=== PATIENT | male | born 1950 | race Caucasian/White ===

== ENCOUNTER 2018-09-23 10:50 | Emergency (ER) | payer OTHER, MEDICARE ==
[2018-09-23 11:01] VITALS: BP 154/94
[2018-09-23] MEDS ORDERED: BUPIVACAINE HCL 0.75% INJ/PF (7.5 MG/1 ML) 10 ML SDV INJ ONE (11:16)
[2018-09-23] MEDS ORDERED: METHYLPREDNISOLONE ACETATE INJ 80 MG/1 ML VIAL IM ONE (11:16)
[2018-09-23 11:42] LABS: ABSOLUTE EOSINOPHILS # (AUTO) 0.1 10^3/uL (0.0-0.6); ABSOLUTE LYMPHOCYTES (AUTO) 0.7 10^3/uL (0.5-4.7); ABSOLUTE MONOCYTES (AUTO) 0.8 10^3/uL (0.1-1.4); ABSOLUTE NEUT (AUTO) 5.7 10^3/uL (1.7-8.2); BASOPHILS % (AUTO) 0.6 % (0-2); EOSINOPHILS % (AUTO) 1.4 % (0-6); HEMATOCRIT 40.1 % (37.9-51.0); HEMOGLOBIN 13.6 g/dL (13.5-17.0); LYMPHOCYTES % (AUTO) 9.7 % (13-45); MEAN CORPUSCULAR HEMOGLOBIN 30.2 pg (27.0-33.4); MEAN CORPUSCULAR HGB CONC 33.8 g/dL (32.0-36.0); MEAN CORPUSCULAR VOLUME 89 fl (80-97); MONOCYTES % (AUTO) 10.9 % (3-13); PLATELET COUNT 223 10^3/uL (150-450); RED BLOOD COUNT 4.48 10^6/uL (4.35-5.55); RED CELL DISTRIBUTION WIDTH 13.3 % (11.5-14.0); SEGMENTED NEUTROPHILS % (AUTO) 77.4 % (42-78); TOTAL CELLS COUNTED % (AUTO) 100 %; WHITE BLOOD COUNT 7.4 10^3/uL (4.0-10.5)
[2018-09-23] MEDS ORDERED: HYDROCODONE/ACETAMINOPHEN 5-325 MG TABLET PO ONE (11:44)
[2018-09-23 12:05] LABS: ANION GAP 9 (5-19); BLOOD UREA NITROGEN 25 mg/dL (7-20); CALCIUM 9.7 mg/dL (8.4-10.2); CARBON DIOXIDE 29 mmol/L (22-30); CHLORIDE 105 mmol/L (98-107); GLUCOSE 97 mg/dL (75-110); POTASSIUM 4.4 mmol/L (3.6-5.0); SODIUM 143.4 mmol/L (137-145); URIC ACID 4.4 mg/dL (3.5-8.5)
[2018-09-23 12:22] LABS: ERYTHROCYTE SEDIMENTATION RATE 44 mm/hr (0-20)
--- NOTE | 2018-09-23 13:03 | ER Document Report ---
ED Extremity Problem, Lower - General Chief Complaint: Leg Swelling Stated Complaint: SWOLLEN WRIST AND LEFT LEG HURTS Time Seen by Provider: 09/23/18 11:07 Mode of Arrival: Ambulatory Information source: Patient Notes: Chief complaint: Right hand, left knee pain History of complain:( obtained from----patient) 68 years old male presents today with right hand swelling over the first and second metacarpal bone region over the extensor surface with redness and warmness for the last 3-4 days. Giving rise to difficulty in flexing and extending the wrist and hand. Left knee swelling and pain for nearly 2 months. Difficulty in walking due to pain. As well as was diagnosed as having Bernardo's cyst. No injury. No fever chills or other constitutional symptoms. Onset: As above Duration: As above Severity: Moderate Quality: Sharp Context: Possible gout Exacerbating factor and relieving factors: Any movement REVIEW OF SYSTEMS: CONSTITUTIONAL : Denies fever, chills, or sweats. Denies recent illness. EENT: Denies eye, ear, throat, or mouth pain or symptoms. Denies nasal or sinus congestion or discharge. Denies throat, tongue, or mouth swelling or difficulty swallowing. CARDIOVASCULAR: Denies chest pain. Denies palpitations or racing or irregular heart beat. Denies ankle edema. RESPIRATORY: Denies cough, cold, or chest congestion. Denies shortness of breath, difficulty breathing, or wheezing. GASTROINTESTINAL: Denies distention. Denies nausea, vomiting, or diarrhea. Denies blood in vomitus, stools, or per rectum. Denies black, tarry stools. Denies constipation. GENITOURINARY: Denies difficulty urinating, painful urination, burning, frequency, blood in urine, or discharge. FEMALE GENITOURINARY: Denies vaginal bleeding, heavy or abnormal periods, irregular periods. Denies vaginal discharge or odor. MUSCULOSKELETAL: Denies back or neck pain or stiffness. Denies joint pain or swelling. SKIN: Denies rash, lesions or sores. HEMATOLOGIC : Denies easy bruising or bleeding. LYMPHATIC: Denies swollen, enlarged glands. NEUROLOGICAL: Denies confusion or altered mental status. Denies passing out or loss of consciousness. Denies dizziness or lightheadedness. Denies headache. Denies weakness or paralysis or loss of use of either side. Denies problems with gait or speech. Denies sensory loss, numbness, or tingling. Denies seizures. PSYCHIATRIC: Denies anxiety or stress. Denies depression, suicidal ideation, or homicidal ideation. ALL OTHER SYSTEMS REVIEWED AND NEGATIVE. PHYSICAL EXAMINATION: GENERAL: Well-appearing, well-nourished and in no acute distress. HEAD: Atraumatic, normocephalic. EYES: Pupils equal round and reactive to light, extraocular movements intact, conjunctiva are normal. ENT: Nares patent, oropharynx clear without exudates. Moist mucous membranes. NECK: Normal range of motion, supple without lymphadenopathy LUNGS: Breath sounds clear to auscultation bilaterally and equal. No wheezes rales or rhonchi. HEART: Regular rate and rhythm without murmurs ABDOMEN: Soft, nontender, nondistended abdomen. No guarding, no rebound. No masses appreciated. Examination of genitals-deferred Musculoskeletal: Right hand-over the first and second metacarpal bones and the extensor surface shows swelling slight erythema and also is warm and tender to touch. Left knee has diffuse swelling with prepatellar prominence swelling as well as tenderness. Slightly warm and tender to touch. Has extreme difficulty in flexing and extending the knee due to stiffness. Neurovascular function distally within normal limit. NEUROLOGICAL: Cranial nerves grossly intact. Normal speech, normal gait. Normal sensory, motor exams PSYCH: Normal mood, normal affect. SKIN: Warm, Dry, normal turgor, no rashes or lesions noted. Dictation was performed using [employer] voice recognition software TRAVEL OUTSIDE OF THE [place] IN LAST 30 DAYS: No - HPI Notes: Dictated - Related Data Allergies/Adverse Reactions: No Known Allergies Allergy (Verified 09/23/18 10:51) Past Medical History - Social History Smoking Status: Current Every Day Smoker Frequency of alcohol use: None Drug Abuse: None Lives with: Family Family History: Reviewed & Not Pertinent Patient has suicidal ideation: No Patient has homicidal ideation: No - Past Medical History Cardiac Medical History: Reports: Hx Hypertension Denies: Hx Coronary Artery Disease, Hx Heart Attack Pulmonary Medical History: Denies: Hx Asthma, Hx Bronchitis, Hx COPD, Hx Pneumonia Neurological Medical History: Denies: Hx Cerebrovascular Accident, Hx Seizures Renal/ Medical History: Denies: Hx Peritoneal Dialysis Musculoskeletal Medical History: Denies Hx Arthritis Past Surgical History: Reports: Hx Abdominal Surgery - hernia repair - Immunizations Hx Diphtheria, Pertussis, Tetanus Vaccination: No Review of Systems - Review of Systems Notes: Dictated Physical Exam - Vital signs Vitals: Temp Pulse Resp BP Pulse Ox 98.0 F 77 16 154/94 H 94 09/23/18 10:56 09/23/18 10:56 09/23/18 10:56 09/23/18 10:56 09/23/18 10:56 - Notes Notes: Dictated Course - Vital Signs Vital signs: Temp Pulse Resp BP Pulse Ox 98.0 F 77 16 154/94 H 94 09/23/18 10:56 09/23/18 10:56 09/23/18 10:56 09/23/18 10:56 09/23/18 10:56 - Laboratory Result Diagrams: 09/23/18 11:30 09/23/18 11:30 Laboratory results interpreted by me: 09/23/18 09/23/18 11:30 11:30 Lymphocytes % 9.7 L ESR 44 H BUN 25 H Procedures - Joint Aspiration Left Knee Time completed: 12:10 Consent obtained: Yes Joint aspiration pre-procedure: Sterile PPE donned Anesthetic type: Other - Depo-Medrol 80 mg mL's of anesthetic: 5 Needle size: 18 Amount/type of drainage: 25 Number of attempts: 1 Complications: No Notes: Under aseptic condition using sterile technique after cleaning with alcohol infiltrated with Sensorcaine, obtained 25 cc of serosanguineous fluid. And subsequently injected with 80 mg of Depo-Medrol mixed with 4 cc of Sensorcaine without any complications. Patient tolerated the procedure well. Able to flex Extend better. 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
--- NOTE | 2018-09-23 13:21 | RADIOLOGY REPORT (SQ) ---
EXAM DESCRIPTION: VENOUS UNILATERAL LOWER COMPLETED DATE/TIME: 09/23/2018 1:13 pm REASON FOR STUDY: dvt COMPARISON: None. TECHNIQUE: Dynamic and static meza scale and color images acquired of the left leg venous system. Se lected spectral images acquired with additional compression and augmentation maneuvers. The contralat eral common femoral vein and saphenofemoral junction were also imaged. Images stored on PACS. LIMITATIONS: None. FINDINGS: COMMON FEMORAL: Normal phasicity, compression and augmentation. No visualized echogenic ma terial on meza scale. No defects on color images. FEMORAL: Normal compression and augmentation. No visualized echogenic material on meza scale. No defe cts on color images. POPLITEAL: Normal compression, augmentation. No visualized echogenic material on meza scale. No defec ts on color images. CALF VESSELS: Normal compression, augmentation. No visualized echogenic material on meza scale. No de fects on color images. GSV and SSV: Normal compression, augmentation. No visualized echogenic material on meza scale. No def ects on color images. ANY DEEP VENOUS INSUFFICIENCY: Not evaluated. ANY EVIDENCE OF POPLITEAL CYST: No. OTHER: No other significant finding. CONTRALATERAL COMMON FEMORAL VEIN AND SAPHENOFEMORAL JUNCTION: Normal phasicity, compression and augmentation. No visualized echogenic material on meza scale. No de fects on color images. IMPRESSION: Negative ultrasound examination for deep venous thrombosis in the left lower extremity. TECHNICAL DOCUMENTATION: JOB ID: [id number] [employer]- All Rights Reserved Reading location - IP/workstation name: [email or web address]
== END 2018-09-23 13:29 | disposition home or self-care (01) ==
LOC: ER 10:50
DX: T56.0X1A Toxic effect of lead and its compounds, accidental (unintentional), initial encounter (principal); M10.1 Lead-induced gout; X58.XXXA Exposure to other specified factors, initial encounter; F17.200 Nicotine dependence, unspecified, uncomplicated; I10 Essential (primary) hypertension
CPT/HCPCS: 99284; 36415; 84550; 85025; 85652; 80048; 93971; 20610; L3908

== ENCOUNTER 2019-04-15 11:19 | Emergency (ER) | payer OTHER, MEDICARE ==
[2019-04-15] MEDS ORDERED: ASPIRIN 81 MG TABLET, CHEWABLE PO ONE (11:39)
--- NOTE | 2019-04-15 11:42 | ER Document Report ---
ED Medical Screen (RME) - General Chief Complaint: Chest Pain Stated Complaint: CHEST PRESSURE Time Seen by Provider: 04/15/19 11:36 Mode of Arrival: Ambulatory Information source: Patient Notes: Patient presents to the emergency department with complaints of chest pressure. Reports this started this morning after he ate breakfast. He reports he has pressure in his chest and his bilateral upper arms. Reports is having a headache also. Patient is being evaluated for TIAs and small vessel ischemia? Denies nausea vomiting denies trauma. Denies shortness of breath. History of gout. Respiratory rate even unlabored. Denies pain upon palpation of chest. I have greeted and performed a rapid initial assessment of this patient. A comprehensive ED assessment and evaluation of the patient, analysis of test results and completion of the medical decision making process will be conducted by additional ED providers. Dictation of this chart was performed using voice recognition software; therefore, there may be some unintended grammatical errors. TRAVEL OUTSIDE OF THE [place] IN LAST 30 DAYS: No - Related Data Allergies/Adverse Reactions: No Known Allergies Allergy (Verified 04/15/19 11:20) Past Medical History - Social History Chew tobacco use (# tins/day): No Frequency of alcohol use: None Drug Abuse: None - Past Medical History Cardiac Medical History: Reports: Hx Hypertension Denies: Hx Coronary Artery Disease, Hx Heart Attack Pulmonary Medical History: Denies: Hx Asthma, Hx Bronchitis, Hx COPD, Hx Pneumonia Neurological Medical History: Denies: Hx Cerebrovascular Accident, Hx Seizures Renal/ Medical History: Denies: Hx Peritoneal Dialysis Musculoskeltal Medical History: Denies Hx Arthritis Past Surgical History: Reports: Hx Abdominal Surgery - hernia repair - Immunizations Hx Diphtheria, Pertussis, Tetanus Vaccination: No Physical Exam - Vital signs Vitals: Temp Pulse Resp BP Pulse Ox 97.3 F 65 18 132/77 H 95 04/15/19 11:33 04/15/19 11:33 04/15/19 11:33 04/15/19 11:33 04/15/19 11:33 Course - Vital Signs Vital signs: Temp Pulse Resp BP Pulse Ox 97.3 F 65 18 132/77 H 95 04/15/19 11:33 04/15/19 11:33 04/15/19 11:33 04/15/19 11:33 04/15/19 11:33
[2019-04-15 12:21] LABS: ABSOLUTE EOSINOPHILS # (AUTO) 0.2 10^3/uL (0.0-0.6); ABSOLUTE MONOCYTES (AUTO) 0.8 10^3/uL (0.1-1.4); ABSOLUTE NEUT (AUTO) 4.4 10^3/uL (1.7-8.2); BASOPHILS % (AUTO) 0.6 % (0-2); EOSINOPHILS % (AUTO) 3.2 % (0-6); HEMATOCRIT 41.2 % (37.9-51.0); HEMOGLOBIN 13.7 g/dL (13.5-17.0); LYMPHOCYTES % (AUTO) 15.8 % (13-45); MEAN CORPUSCULAR HEMOGLOBIN 29.5 pg (27.0-33.4); MEAN CORPUSCULAR HGB CONC 33.3 g/dL (32.0-36.0); MEAN CORPUSCULAR VOLUME 89 fl (80-97); MONOCYTES % (AUTO) 12.7 % (3-13); PLATELET COUNT 243 10^3/uL (150-450); RED BLOOD COUNT 4.65 10^6/uL (4.35-5.55); RED CELL DISTRIBUTION WIDTH 13.2 % (11.5-14.0); SEGMENTED NEUTROPHILS % (AUTO) 67.7 % (42-78); TOTAL CELLS COUNTED % (AUTO) 100 %; WHITE BLOOD COUNT 6.5 10^3/uL (4.0-10.5)
--- NOTE | 2019-04-15 12:28 | RADIOLOGY REPORT (SQ) ---
EXAM DESCRIPTION: CHEST 2 VIEWS COMPLETED DATE/TIME: 04/15/2019 12:03 pm REASON FOR STUDY: cpressure COMPARISON: None. EXAM PARAMETERS: NUMBER OF VIEWS: two views TECHNIQUE: Digital Frontal and Lateral radiographic views of the chest acquired. RADIATION DOSE: NA LIMITATIONS: none FINDINGS: LUNGS AND PLEURA: No opacities, masses or pneumothorax. No pleural effusion. MEDIASTINUM AND HILAR STRUCTURES: No masses or contour abnormalities. HEART AND VASCULAR STRUCTURES: Heart normal size. No evidence for failure. BONES: No acute findings. HARDWARE: None in the chest. OTHER: No other significant finding. IMPRESSION: NO ACUTE RADIOGRAPHIC FINDING IN THE CHEST. TECHNICAL DOCUMENTATION: JOB ID: [id number] [employer]- All Rights Reserved Reading location - IP/workstation name: [email or web address]
[2019-04-15 12:39] LABS: APPEARANCE,URINE CLEAR; BILIRUBIN,URINE NEGATIVE (NEGATIVE); COLOR,URINE STRAW; GLUCOSE, URINE NEGATIVE (NEGATIVE)
[2019-04-15 12:40] LABS: KETONES,URINE NEGATIVE (NEGATIVE); LEUKOCYTE ESTERASE,URINE NEGATIVE (NEGATIVE); NITRITE,URINE NEGATIVE (NEGATIVE); PROTEIN,URINE NEGATIVE (NEGATIVE); URINE SPECIFIC GRAVITY 1.016; UROBILINOGEN,URINE NEGATIVE mg/dL (<2.0)
[2019-04-15 12:42] LABS: ALANINE AMINOTRANSFERASE 24 U/L (21-72); ALBUMIN 3.9 g/dL (3.5-5.0); ALKALINE PHOSPHATASE 109 U/L (38-126); ANION GAP 8 (5-19); ASPARTATE AMINO TRANSFERASE 28 U/L (17-59); BILIRUBIN,DIRECT 0.2 mg/dL (0.0-0.4); BILIRUBIN,TOTAL 0.4 mg/dL (0.2-1.3); BLOOD UREA NITROGEN 24 mg/dL (7-20); CALCIUM 9.6 mg/dL (8.4-10.2); CARBON DIOXIDE 30 mmol/L (22-30); CHLORIDE 104 mmol/L (98-107); CREATINE KINASE 85 U/L (55-170); GLUCOSE 85 mg/dL (75-110); LIPASE 122.1 U/L (23-300); POTASSIUM 4.4 mmol/L (3.6-5.0); SODIUM 141.7 mmol/L (137-145); TOTAL PROTEIN 7.3 g/dL (6.3-8.2)
--- NOTE | 2019-04-15 13:32 | ER Document Report ---
Addendum entered and electronically signed by NEMO RODRIGUEZ PA-C 04/15/19 16:54: Discharge - Discharge Clinical Impression: Chest pain Qualifiers: Chest pain type: unspecified Qualified Code(s): R07.9 - Chest pain, unspecified Condition: Good Disposition: HOME, SELF-CARE Additional Instructions: You were seen today for chest pain. The exact cause of your pain is unclear. However, based on your cardiac enzyme testing, chest x-ray, and EKG it does not appear that it is from an immediately life-threatening cause at this time. Although your testing here is normal is critical that you follow-up with your primary care physician for continued evaluation of this chest pain and possible stress testing. I recommended you see your physician within the next 24-48 hours to be evaluated for consideration of a stress test. Please return to emergency department immediately if you have worsening of your chest pain, shortness of breath, vomiting, become unable to exert yourself due to pain or difficulty breathing, you pass out, or have any pain that radiates into your arms, jaw, or back. Please also return if you have any additional symptoms that are concerning to you. Referrals: ROBERTO TINEO PA [Primary Care Provider] - Follow up as needed HARIS MOURA MD [ACTIVE STAFF] - 04/17/19 Original Note: ED General - General Chief Complaint: Chest Pain Stated Complaint: CHEST PRESSURE Time Seen by Provider: 04/15/19 11:36 Primary Care Provider: ROBERTO TINEO PA [Primary Care Provider] - Follow up as needed Mode of Arrival: Ambulatory Notes: Very pleasant 68-year-old male with hypertension presents to the emergency department with chief complaint of some mild chest pressure and arm pressure after breakfast this morning. He also complains of a frontal headache. noted that last week he was working out in the hot sun and he had an episode where he had to come in and he vomited. Today he said the pressure only lasted for a short while and it felt like a heaviness on his chest. He states that he then became pale. He is also been fatigued. He denies any diaphoresis, shortness of breath, dyspnea on exertion, nausea, no radiating chest pain, no recent illness, no abdominal pain, no vomiting, no diarrhea. No other complaints patient is a non-smoker and nondrinker. TRAVEL OUTSIDE OF THE [place] IN LAST 30 DAYS: No - Related Data Allergies/Adverse Reactions: No Known Allergies Allergy (Verified 04/15/19 11:20) Past Medical History - General Information source: Patient - Social History Smoking Status: Never Smoker Chew tobacco use (# tins/day): No Frequency of alcohol use: None Drug Abuse: None Family History: Reviewed & Not Pertinent Patient has suicidal ideation: No Patient has homicidal ideation: No - Past Medical History Cardiac Medical History: Reports: Hx Hypertension Denies: Hx Coronary Artery Disease, Hx Heart Attack Pulmonary Medical History: Denies: Hx Asthma, Hx Bronchitis, Hx COPD, Hx Pneumonia Neurological Medical History: Denies: Hx Cerebrovascular Accident, Hx Seizures Renal/ Medical History: Denies: Hx Peritoneal Dialysis Musculoskeletal Medical History: Denies Hx Arthritis Past Surgical History: Reports: Hx Abdominal Surgery - hernia repair - Immunizations Hx Diphtheria, Pertussis, Tetanus Vaccination: No Review of Systems - Review of Systems Constitutional: See HPI EENT: No symptoms reported Cardiovascular: See HPI Respiratory: See HPI Gastrointestinal: See HPI Genitourinary: No symptoms reported Male Genitourinary: No symptoms reported Musculoskeletal: No symptoms reported Skin: No symptoms reported Hematologic/Lymphatic: No symptoms reported Neurological/Psychological: No symptoms reported Physical Exam - Vital signs Vitals: Temp Pulse Resp BP Pulse Ox 97.3 F 65 18 132/77 H 95 04/15/19 11:33 04/15/19 11:33 04/15/19 11:33 04/15/19 11:33 04/15/19 11:33 - Notes Notes: PHYSICAL EXAMINATION: Reviewed vital signs and charting by RN GENERAL: Alert, interacts well. No acute distress. HEAD: Normocephalic, atraumatic. EYES: Pupils equal and round. Extraocular movements intact. ENT: Oral mucosa moist, tongue midline. NECK: Full range of motion. Trachea midline. LUNGS: Clear to auscultation bilaterally, no wheezes, rales, or rhonchi. No respiratory distress. HEART: Regular rate and rhythm. No murmur ABDOMEN: soft, non-tender. No distention. Bowel sounds present EXTREMITIES: Moves all 4 extremities spontaneously. No edema, No cyanosis. PSYCH: Normal affect, normal mood. SKIN: Warm, dry, normal turgor. No rashes or lesions noted. Course - Re-evaluation Re-evalutation: 04/15/19 13:29 Overall very well-appearing. Patient has no major risk factors other than hypertension for a major adverse cardiac event. Heart score 2 for age and hypertension. 04/15/19 16:46 Second troponin negative. Presentation of chest pain in an otherwise well appearing patient. Low clinical suspicion for ACS given clinical history, exam, EKG without ST elevations or depressions, and negative initial troponin. HEART score less than or equal to 3. PE also seems unlikely given clinical history, absence of tachycardia or dyspnea. Patient is PERC criteria negative. CXR without evidence of pneumothorax or pneumonia. No widened mediastinum. Aortic dissection also seems unlikely given history, symmetric pulses, CXR, and vitals. Vital signs within normal limits. Patient is stable for discharge with strict return precautions. - Vital Signs Vital signs: Temp Pulse Resp BP Pulse Ox 97.3 F 65 18 132/77 H 95 04/15/19 11:33 04/15/19 11:33 04/15/19 11:33 04/15/19 11:33 04/15/19 11:33 - Laboratory Result Diagrams: 04/15/19 11:49 04/15/19 11:49 Laboratory results interpreted by me: 04/15/19 04/15/19 11:49 11:49 BUN 24 H Creatinine 1.29 H Est GFR (Non-Af Amer) 55 L Urine Ascorbic Acid 20 H Discharge - Discharge Clinical Impression: Chest pain Qualifiers: Chest pain type: unspecified Qualified Code(s): R07.9 - Chest pain, unspecified Condition: Good Disposition: HOME, SELF-CARE Additional Instructions: You were seen today for chest pain. The exact cause of your pain is unclear. However, based on your cardiac enzyme testing, chest x-ray, and EKG it does not appear that it is from an immediately life-threatening cause at this time. Although your testing here is normal is critical that you follow-up with your primary care physician for continued evaluation of this chest pain and possible stress testing. I recommended you see your physician within the next 24-48 hours to be evaluated for consideration of a stress test. Please return to emergency department immediately if you have worsening of your chest pain, shortness of breath, vomiting, become unable to exert yourself due to pain or difficulty breathing, you pass out, or have any pain that radiates into your arms, jaw, or back. Please also return if you have any additional symptoms that are concerning to you. Referrals: ROBERTO TINEO PA [Primary Care Provider] - Follow up as needed
[2019-04-15 17:18] VITALS: BP 130/84
--- NOTE | 2019-04-15 19:15 | EKG REPORT ---
SEVERITY:- ABNORMAL ECG - SINUS RHYTHM LAD, CONSIDER LAFB OR INFERIOR INFARCT : Confirmed by: London Campo 15-Apr-2019 19:14:31
== END 2019-04-15 17:17 | disposition home or self-care (01) ==
LOC: ER 11:19
DX: R07.9 Chest pain, unspecified (principal); R51 Headache; R53.83 Other fatigue; I10 Essential (primary) hypertension
CPT/HCPCS: 36415; 71046; 80053; 81001; 82550; 83690; 84484; 85025; 93005; 93010; 99284

== ENCOUNTER 2019-11-13 08:17 | Day surgery (SDC) | payer OTHER, MEDICARE ==
[~2019-11-13 08:17] MED LIST: PROPOFOL INJ 200 MG/20 ML VIAL IV ONE
[2019-11-13 10:30] VITALS: BP 133/86
--- NOTE | 2019-11-13 14:09 | Operative Report ---
Operative Report DATE OF SURGERY: 11/13/19 Operative Report: The risk, benefits and alternatives of the procedure including the risk of bleeding, perforation requiring surgery have been explained to the patient in detail and informed consent has been obtained. Patient is placed in a left, lateral decubital position. Timeout was called. Propofol medication is administered. Rectal examination is done which did not reveal any masses, tears or fissures. An Olympus videoscope was introduced into the patient's rectum. Scope was then carefully advanced all the way to the cecum. Cecum was identified by the usual anatomical landmarks including the ileocecal valve as well as the appendiceal office. Photodocumentation is obtained. Scope was then sequentially pulled back via the various segments of the colon including the ascending colon, hepatic flexure, transverse colon, splenic flexure, descending colon finding to the rectosigmoid portions of the colon. Retroflexion maneuvers performed. PREOPERATIVE DIAGNOSIS: Colorectal cancer screening POSTOPERATIVE DIAGNOSIS: Normal screening colonoscopy OPERATION: Diagnostic colonoscopy SURGEON: MASOUD CARLOS ANESTHESIA: LMAC TISSUE REMOVED OR ALTERED: None. COMPLICATIONS: None. ESTIMATED BLOOD LOSS: None. INTRAOPERATIVE FINDINGS: Incidental finding of diverticulosis and internal hemorrhoids PROCEDURE: Patient tolerated the procedure well. No immediate postprocedure complications are noted. Patient is discharged in good condition. Discharge date 11/13/2019. Discharge diet: Regular. Discharge activity: Regular. 2 to 3-week follow-up to discuss findings. Patient is instructed to call the office or proceed to the emergency room should there be any further problems or questions. 10-year surveillance colonoscopy.
== END 2019-11-13 10:28 | disposition home or self-care (01) ==
LOC: END 08:17
PROVIDERS: ATTEND Internal Medicine Gastroenterology
DX: Z12.11 Encounter for screening for malignant neoplasm of colon (principal); K57.30 Diverticulosis of large intestine without perforation or abscess without bleeding; K64.8 Other hemorrhoids; Z86.010 Personal history of colon polyps; Z79.891 Long term (current) use of opiate analgesic; Z79.899 Other long term (current) drug therapy; Z79.82 Long term (current) use of aspirin
CPT/HCPCS: 45378; J2704